=== PATIENT | female | born 1960 | race Caucasian/White ===

== ENCOUNTER → 2023-01-26 | Outpatient (CLI) | payer OTHER ==
--- NOTE | 2023-01-26 10:24 | Diagnostic Imaging Report ---
INDICATION: PAIN OF LEFT WRIST COMPARISON: None. FINDINGS: 3 views of the left wrist demonstrate no acute fracture or dislocation. There are no focal osseous lesions. No avascular necrosis is seen. The visualized soft tissue structures are unremarkable. The pronator fat pad is not displaced. There are no radio opaque foreign bodies. IMPRESSION: 1. No acute fracture or dislocation in the left wrist. Dictated by: Dictated on workstation # [id number]
== END ==
LOC: ORTHO 10:10
PROVIDERS: ATTEND Orthopaedic Surgery
DX: M25.532 Pain in left wrist (principal)
CPT/HCPCS: 73110; G0463; 99203